=== PATIENT | female | born 1995 | race Caucasian/White ===

== ENCOUNTER 2023-08-07 15:59 | Emergency (ER) | payer BC, SELFPAY ==
[2023-08-07 16:01] VITALS: BP 102/68; PULSE 90; RESP 20; TEMP 36.7; O2SAT 98; BMI 24.3
[2023-08-07 16:08] VITALS: BP 102/68
--- NOTE | 2023-08-07 16:14 | ED_ITS ---
<Statement entered by Deloris Galeas DO - 08/07/23 21:49> I was consulted by the MARSHA, and we discussed the complexity of the problems being addressed. I approved the treatment and management plan for this patient's care in the emergency department, thus performing a substantive portion of the medical decision making. Deloris Galeas DO Discharge Plan Disposition Patient Disposition: Home, Self-Care Condition: Good Prescriptions Prescriptions: New cephalexin 500 mg capsule 500 mg PO BID 10 Days Qty: 20 0RF Referrals Follow up/Referrals: Provider,Referral, MD [Primary Care Provider] - See instructions Activity Restrictions/Add. Instructions Additional Instructions/Restrictions: Return for suture removal in 10 days to your PCP WIC or the ER. Return for any worsening signs or symptoms including drainage pain redness bleeding etc. Clinical Impressions Clinical Impression: Laceration Instructions Patient Instructions: DI for Laceration Repair Discharge ED Provider: Deloris Galeas General Adult HPI General Chief complaint: Wound/Laceration Stated complaint: AO 08-07-23 cut right hand 1400 Time Seen by Provider: 08/07/23 16:06 History of Present Illness HPI narrative: Patient presents for laceration of her right fifth digit. Patient was using a mandolin potato slicer and it slipped causing a laceration to the volar surface of her DIP of the fifth digit. Patient has factor V Leiden deficiency as well. Related Data Previous Rx's Medication Instructions Recorded cephalexin 500 mg capsule 500 mg PO BID 10 days #20 caps 08/07/23 Allergies Allergy/AdvReac Type Severity Reaction Status Date / Time codeine Allergy Verified 08/07/23 16:20 oseltamivir [From Tamiflu] Allergy Verified 08/07/23 16:20 [facility] Disclaimer: The information contained in this section may have been updated after the patient was seen, as this information can be updated by other users. Social History (Updated 08/07/23 @ 17:31 by JO ANN King) Smoking Status: Current every day smoker alcohol intake: never current occupational status: employed Travel in the last 8 weeks: None ROS Obtained: Yes Systems reviewed as appropriate & no additional complaints except as documented Physical Exam General General appearance: alert and in no apparent distress Respiratory Respiratory exam: Present normal lung sounds bilaterally Cardiovascular Cardiovascular exam: Present regular rate Neurological Exam Neurological exam: Present alert and oriented X3 Other Other exam information: Patient has a triangular-shaped with a point at the proximal start of the laceration and nearly avulsed at the distal portion but still attached. There is some viable subcutaneous tissue. It did not involve the nailbed. It did not reach past the subcutaneous tissue down to the bone or tendons. Patient is neurovascularly intact with full flexion extension currently. Medical Decision Making Medical Records Medical records reviewed: Yes I reviewed the patient's medical records. [place] Inquiry Pt receiving controlled substance: No Vital Signs: 08/07/23 16:01 08/07/23 16:08 08/07/23 17:37 Temperature 98.0 F 98.0 F Temperature Source Oral Pulse Rate 70 Pulse Rate [Right Radial] 90 Respiratory Rate 20 20 Blood Pressure 102/68 L 128/78 Blood Pressure [Right Arm] 102/68 L Blood Pressure Mean 77 Blood Pressure Mean [Right Arm] 79 02 Sat by Pulse Oximetry 98 Oxygen Delivery Method Room Air Room Air Orders (Tests/Meds): ED MEDICATIONS Discontinued Medications Generic Name Dose Route Start Last Admin Trade Name Freq PRN Reason Stop Dose Admin Lidocaine HCl 10 ml 08/07/23 16:15 08/07/23 16:21 Lidocaine 1% 10ml Mdv SQ 08/07/23 16:16 10 ml ONCE ONE Administration Medical Decision Narrative: In summary patient is a 28-year-old female who presents to the emergency department for evaluation of laceration of the volar surfaces of the fifth digit of the dominant right hand. Patient is currently hemodynamically stable upon arrival, afebrile. Physical exam is remarkable for a laceration of the distal portion of her fifth digit of the right hand. It is a beveled laceration with still viable tissue attached distally. Neurovascular intact distally.. Differential diagnosis includes simple laceration versus open fracture or nerve or tendinous injury.. Wound repaired with thirteen 5-0 nylon stitches. Wound exploration showed no other deep structure involvement. Given this patient is appropriate for discharge home with recommendations for at least 10 days of keeping the sutures in. Patient return for any worsening signs or symptoms including infection drainage pain bleeding etc. Procedures Laceration Laceration 1: Site: finger (Right volar surface of the fifth) Side (If applicable): right Size (cm): 6 Description: irregular Depth: simple, single layer Local Anesthetic: lidocaine 1% Amount of anesthesia used (mL): 10 Pre-repair: wound explored, irrigated extensively and deep structures intact Skin layer closed with: nylon Size (cm): 5-0 Number of sutures: 13 Technique: simple, interrupted Critical Care Critical Care Time Critical Care Time: No
[2023-08-07] MEDS: LIDOCAINE 1% 10ML MDV 10 ML SQ (16:21)
[2023-08-07 17:37] VITALS: BP 128/78; PULSE 70; RESP 20; TEMP 36.7; O2SAT 98
== END 2023-08-07 17:38 | disposition home or self-care (01) ==
PROVIDERS: Emergency Provider Emergency Medicine
DX: S61.216A Laceration without foreign body of right little finger without damage to nail, initial encounter (principal); W26.8XXA Contact with other sharp object(s), not elsewhere classified, initial encounter
CPT/HCPCS: 12002; 99283